=== PATIENT | male | born 1955 | race American Indian/Alaskan Native ===

== ENCOUNTER 2016-08-09 09:42 | Outpatient (CLI) | payer OTHER ==
--- NOTE | 2016-08-09 10:15 | XRay Report ---
PA and lateral chest: SOB. There is enlargement of the heart and there is mild redistribution of flow to the upper lobes. Mild blunting of both costophrenic angles is present. A focal area of atelectasis is present in the peripheral mid left lung. The chest is otherwise unremarkable. Compared to prior study of December 17, 2015 the overall pulmonary pattern is improved. Impression: Small effusions. Questionable CHF.
== END 2016-08-09 09:43 | disposition home or self-care (01) ==
LOC: XRAY 09:42
PROVIDERS: ATTEND Internal Medicine
DX: I50.41 Acute combined systolic (congestive) and diastolic (congestive) heart failure (principal); I51.7 Cardiomegaly; J98.11 Atelectasis; J90 Pleural effusion, not elsewhere classified
CPT/HCPCS: 71020

== ENCOUNTER 2017-04-15 15:09 | Inpatient (IN) | payer OTHER ==
[2017-04-15 15:47] LABS: Basophils % (Auto) 0.3 % (0.0-1.8); Eosinophils % (Auto) 2.3 % (0.0-4.3); Hematocrit 24.3 % (35.5-45.6); Hemoglobin 7.9 gm/dl (11.8-15.2); Mean Corpuscular HGB Conc 33 % (32-34); Mean Corpuscular Hemoglobin 28 pg (28-32); Mean Corpuscular Volume 85 fl (84-94); Platelet Count 230 K/mm3 (140-440); Red Blood Count 2.87 M/mm3 (3.65-5.03); Red Cell Distribution Width 17.7 % (13.2-15.2); White Blood Count 7.1 K/mm3 (4.5-11.0)
--- NOTE | 2017-04-15 15:55 | XRay Report ---
FINAL REPORT EXAM: XR CHEST ROUTINE 2V HISTORY: Shortness of breath TECHNIQUE: Frontal and lateral views of the chest. PRIORS: None currently available. FINDINGS: Cardiac silhouette is within normal limits. Aortic calcifications. There is no effusion. There is no pneumothorax. Prominent central pulmonary markings. Subtle airspace opacities in the left lower lobe. Lungs appear hyperinflated and may be related to reactive airway disease or COPD. There are no suspicious osseous lesions. Degenerative changes are present within the spine. IMPRESSION: Pulmonary findings may represent pneumonia, bronchitis, reactive airway disease, interstitial pneumonitis, or pulmonary vascular congestion. Favor pulmonary vascular congestion, bronchitis, or reactive airway disease.
[2017-04-15 16:07] LABS: Calcium 8.5 mg/dL (8.4-10.2); Chloride 104.1 mmol/L (98-107); Potassium 4.4 mmol/L (3.6-5.0)
[2017-04-15] MEDS ORDERED: NITROSTAT SL ONE (16:16)
[2017-04-15] MEDS ORDERED: LASIX IV ONE (16:17)
--- NOTE | 2017-04-15 17:14 | Emergency Department Report ---
ED Shortness of Breath HPI - General Chief Complaint: Dyspnea/Respdistress Stated Complaint: DIFFICULTY BREATHING Time Seen by Provider: 04/15/17 16:03 Source: patient Mode of arrival: Ambulatory Limitations: No Limitations - History of Present Illness Initial Comments: History of present illness 62-year-old male history of chronic kidney disease his creatinine was 3.6 6 mos ago, has been having bronchitis symptoms off and on for a month is here for multiple complaints he has a persistent little bit of a whitish sputum with cough he's had an increasing pedal edema and he satting occasional increase orthopnea he denies any black or bloody stool he denies any chest pain denies any syncope is having intermittent shortness of breath he is here for evaluation of multiple things increasing pedal edema increasing shortness of breath with a bronchitis off and on for a month says that his daily and twice a day. bumex is not helping MD Complaint: shortness of breath -: Gradual, days(s), month(s) Radiation: other (no radiation) Consistency: intermittent Improves With: other (questionable worse with laying flat) - Related Data Home Medications Medication Instructions Recorded Confirmed Last Taken Canagliflozin (Nf) [Invokana (Nf)] 100 mg PO DAILY 09/09/14 05/18/15 Unknown Carvedilol [Coreg] 25 mg PO BID 09/09/14 05/18/15 Unknown Linagliptin [Tradjenta] 5 mg PO QDAY 09/09/14 05/18/15 Unknown amLODIPine [Norvasc] 10 mg PO DAILY 09/09/14 05/18/15 Unknown AtorvaSTATin 40 mg PO DAILY 05/18/15 05/18/15 Unknown Allergies Allergy/AdvReac Type Severity Reaction Status Date / Time lisinopril Allergy Angioedema Verified 04/15/17 15:13 Penicillins Allergy Unknown Verified 04/15/17 15:13 ED Review of Systems ROS: Stated complaint: DIFFICULTY BREATHING Other details as noted in HPI Comment: All other systems reviewed and negative Respiratory: shortness of breath Cardiovascular: denies: chest pain, palpitations, syncope Gastrointestinal: as per HPI. denies: abdominal pain, nausea, vomiting, hematemesis, melena, hematochezia Musculoskeletal: other (no calf pain). denies: back pain, myalgia Hematological/Lymphatic: denies: easy bruising ED Past Medical Hx - Past Medical History Previous Medical History?: Yes Hx Hypertension: Yes Hx CVA: Yes (2011) Hx Congestive Heart Failure: No Hx Diabetes: Yes Hx Asthma: No Hx COPD: No Hx HIV: No Additional medical history: high cholesterol - Social History Smoking Status: Never Smoker Substance Use Type: Alcohol - Medications Home Medications: Home Medications Medication Instructions Recorded Confirmed Last Taken Type Canagliflozin (Nf) [Invokana (Nf)] 100 mg PO DAILY 09/09/14 05/18/15 Unknown History Carvedilol [Coreg] 25 mg PO BID 09/09/14 05/18/15 Unknown History Linagliptin [Tradjenta] 5 mg PO QDAY 09/09/14 05/18/15 Unknown History amLODIPine [Norvasc] 10 mg PO DAILY 09/09/14 05/18/15 Unknown History AtorvaSTATin 40 mg PO DAILY 05/18/15 05/18/15 Unknown History ED Physical Exam - General Limitations: No Limitations General appearance: alert, in no apparent distress - Head Head exam: Present: atraumatic, normocephalic - Eye Eye exam: Present: PERRL, EOMI - Neck Neck exam: Present: normal inspection. Absent: meningismus - Respiratory Respiratory exam: Present: rales, other (crackles at base) - GI/Abdominal GI/Abdominal exam: Present: soft. Absent: distended, tenderness, guarding, rebound, rigid, mass - Back Exam Back exam: Absent: tenderness, CVA tenderness (R) - Neurological Exam Neurological exam: Present: alert, altered, oriented X3, CN II-XII intact, motor sensory deficit, reflexes normal - Psychiatric Psychiatric exam: Present: normal affect ED Course Vital Signs 04/15/17 15:13 Temperature 97.8 F Pulse Rate 84 Respiratory 16 Rate Blood Pressure 153/74 O2 Sat by Pulse 97 Oximetry ED Medical Decision Making - Lab Data Result diagrams: 04/15/17 15:20 04/15/17 15:20 - EKG Data -: EKG Interpreted by Me - EKG Data When compared to previous EKG there are: no significant change Interpretation: no acute changes, other (no acute ischemic change) - Medical Decision Making Patient states he does have chronic kidney disease his creatinine has been 3.6436 months today it is still elevated in the threes his previous visit had a normal troponin at that point of the kidneys were better with a creatinine was in the low range he states he did have a recent echo stress Cardiolite, [place] that he says was unremarkable he is not having chest pain but he does have an elevated troponin follow his elevated creatinine he also has an anemia although he denies GI bleed EKG does not show any acute ischemic change chest x- ray shows some mild interstitial changes with likely mild CHF with possible bronchitis. I did discuss case with Dr. Kennedy MARTINEZ is evalthe patient for admission Critical care attestation.: If time is entered above; I have spent that time in minutes in the direct care of this critically ill patient, excluding procedure time. ED Disposition Clinical Impression: Dyspnea Disposition: DC-01 TO HOME OR SELFCARE Is pt being admited?: Yes Does the pt Need Aspirin: Yes Condition: Stable Referrals: PRIMARY CARE, [Primary Care Provider] - 3-5 Days
[2017-04-15] MEDS ORDERED: ASPIRIN PO ONE (17:18)
--- NOTE | 2017-04-15 21:21 | History and Physical Report ---
History of Present Illness Date of examination: 04/15/17 Date of admission: 04/15/17 Chief complaint: CC Increasing sob and swelling of legs 1 week History of present illness: History of Present Illness 62-year-old AAM with history of chronic kidney disease (creatinine was 3.6 6 mos ago) has been having bronchitis symptoms off and on .Has been having increasing pedal edema and orthopnea.On Bumex and zaroxylyn with no relieg. He denies any chest pain or syncope .Is having intermittent shortness of breath He is here for evaluation of increasing pedal edema increasing shortness of breath with a bronchitis off and on for a month says that his daily and twice a day. bumex is not helping Past Medical History Previous Medical History?: Yes Hx Hypertension: Yes Hx CVA: Yes (2011) Hx Congestive Heart Failure: No Hx Diabetes: Yes Additional medical history: high cholesterol - Social History Smoking Status: Never Smoker Substance Use Type: Alcohol Surg Hx Rt and Lt Toe surgery-Bunion removal Fam Hx Htn - Medications Home Medications: Home Medications Medication Instructions Recorded Confirmed Last Taken Type Canagliflozin (Nf) [Invokana (Nf)] 100 mg PO DAILY 09/09/14 05/18/15 Unknown History Carvedilol [Coreg] 25 mg PO BID 09/09/14 05/18/15 Unknown History Linagliptin [Tradjenta] 5 mg PO QDAY 09/09/14 05/18/15 Unknown History amLODIPine [Norvasc] 10 mg PO DAILY 09/09/14 05/18/15 Unknown History AtorvaSTATin 40 mg PO DAILY 05/18/15 05/18/15 Unknown History Review of Systems ROS: Stated complaint: DIFFICULTY BREATHING Other details as noted in HPI Comment: All other systems reviewed and negative Respiratory: shortness of breath Cardiovascular: denies: chest pain, palpitations, syncope Gastrointestinal: as per HPI. denies: abdominal pain, nausea, vomiting, hematemesis, melena, hematochezia Musculoskeletal: other (no calf pain). denies: back pain, myalgia Hematological/Lymphatic: denies: easy bruising Medications and Allergies Allergies Allergy/AdvReac Type Severity Reaction Status Date / Time lisinopril Allergy Angioedema Verified 04/15/17 15:13 Penicillins Allergy Unknown Verified 04/15/17 15:13 Home Medications Medication Instructions Recorded Confirmed Last Taken Type Carvedilol [Coreg] 25 mg PO BID 09/09/14 04/15/17 Unknown History Linagliptin [Tradjenta] 5 mg PO QDAY 09/09/14 04/15/17 Unknown History AtorvaSTATin 40 mg PO DAILY 05/18/15 04/15/17 Unknown History Bumetanide [Bumex 1 mg tab] 1 mg PO BID 04/15/17 04/15/17 Unknown History Insulin Glargine,Hum.rec.anlog 5 units SQ QAM 04/15/17 04/15/17 Unknown History [Lantus Solostar] Loratadine [Loratadine] 10 mg PO DAILY 04/15/17 04/15/17 Unknown History Losartan Potassium [Cozaar] 100 mg PO DAILY 04/15/17 04/15/17 Unknown History Metolazone [Zaroxolyn] 5 mg PO DAILY 04/15/17 04/15/17 Unknown History hydrALAZINE [Apresoline TAB] 100 mg PO TID 04/15/17 04/15/17 Unknown History Carvedilol [Carvedilol] 25 mg PO BID 04/16/17 04/16/17 04/15/17 History amLODIPine [Norvasc] 10 mg PO DAILY 04/16/17 04/16/17 04/15/17 History Exam - Constitutional Vitals: Temp Pulse Resp BP Pulse Ox 97.8 F 84 16 155/79 97 04/15/17 15:13 04/15/17 15:13 04/15/17 15:13 04/15/17 18:00 04/15/17 15:13 General appearance: Present: no acute distress, well-nourished - EENT Eyes: Present: PERRL ENT: hearing intact, clear oral mucosa - Neck Neck: Present: supple, normal ROM - Respiratory Respiratory effort: normal Respiratory: bilateral: CTA, rales - Cardiovascular Heart rate: 80 Rhythm: regular Heart Sounds: Present: S1 & S2. Absent: rub, click - Extremities Extremities: pulses symmetrical, No edema Extremity abnormal: edema ( plus bilaterally) Peripheral Pulses: within normal limits - Abdominal General gastrointestinal: Present: soft, non-tender, non-distended, normal bowel sounds Male genitourinary: Present: normal - Integumentary Integumentary: Present: clear, warm, dry - Musculoskeletal Musculoskeletal: gait normal, strength equal bilaterally - Psychiatric Psychiatric: appropriate mood/affect, intact judgment & insight - Neurologic Neurologic: CNII-XII intact, moves all extremities Results - Labs CBC & Chem 7: 04/16/17 05:15 04/16/17 05:15 Labs: Laboratory Last Values WBC 7.1 K/mm3 (4.5-11.0) 04/15/17 15:20 RBC 2.87 M/mm3 (3.65-5.03) L 04/15/17 15:20 Hgb 7.9 gm/dl (11.8-15.2) L 04/15/17 15:20 Hct 24.3 % (35.5-45.6) L 04/15/17 15:20 MCV 85 fl (84-94) 04/15/17 15:20 MCH 28 pg (28-32) 04/15/17 15:20 MCHC 33 % (32-34) 04/15/17 15:20 RDW 17.7 % (13.2-15.2) H 04/15/17 15:20 Plt Count 230 K/mm3 (140-440) 04/15/17 15:20 Lymph % (Auto) 8.4 % (13.4-35.0) L 04/15/17 15:20 [place] % (Auto) 9.5 % (0.0-7.3) H 04/15/17 15:20 Eos % (Auto) 2.3 % (0.0-4.3) 04/15/17 15:20 Baso % (Auto) 0.3 % (0.0-1.8) 04/15/17 15:20 Lymph # 0.6 K/mm3 (1.2-5.4) L 04/15/17 15:20 [place] # 0.7 K/mm3 (0.0-0.8) 04/15/17 15:20 Eos # 0.2 K/mm3 (0.0-0.4) 04/15/17 15:20 Baso # 0.0 K/mm3 (0.0-0.1) 04/15/17 15:20 Seg Neutrophils % 79.5 % (40.0-70.0) H 04/15/17 15:20 Seg Neutrophils # 5.6 K/mm3 (1.8-7.7) 04/15/17 15:20 Sodium 143 mmol/L (137-145) 04/15/17 15:20 Potassium 4.4 mmol/L (3.6-5.0) 04/15/17 15:20 Chloride 104.1 mmol/L (98-107) 04/15/17 15:20 Carbon Dioxide 22 mmol/L (22-30) 04/15/17 15:20 Anion Gap 21 mmol/L 04/15/17 15:20 BUN 38 mg/dL (9-20) H 04/15/17 15:20 Creatinine 3.4 mg/dL (0.8-1.5) H 04/15/17 15:20 Estimated GFR 22 ml/min 04/15/17 15:20 BUN/Creatinine Ratio 11 % 04/15/17 15:20 Glucose 175 mg/dL (75-100) H 04/15/17 15:20 Calcium 8.5 mg/dL (8.4-10.2) 04/15/17 15:20 Troponin T 0.056 ng/mL (0.00-0.029) H 04/15/17 17:04 NT-Pro-B Natriuret Pep 3179 pg/mL (0-900) H 04/15/17 15:20 Triglycerides 69 mg/dL (2-149) 04/15/17 15:20 Cholesterol 101 mg/dL (50-199) 04/15/17 15:20 LDL Cholesterol Direct 30 mg/dL (50-130) L 04/15/17 15:20 HDL Cholesterol 58 mg/dL (40-59) 04/15/17 15:20 Cholesterol/HDL Ratio 1.74 % 04/15/17 15:20 - Imaging and Cardiology EKG: report reviewed (NST 80/min) Chest x-ray: report reviewed (Pulmonary vascular congestion) Assessment and Plan Advance Directives: Yes (Full code) VTE prophylaxis?: Chemical Plan of care discussed with patient/family: Yes - Patient Problems (1) Acute exacerbation of CHF (congestive heart failure) Current Visit: Yes Status: Acute Qualifiers: Congestive heart failure type: combined Qualified Code(s): I50.43 - Acute on chronic combined systolic (congestive) and diastolic (congestive) heart failure Plan to address problem: Check ECHO Clinical picture c/w CHF IV Lasix for now Cardiology consult (2) Diabetes mellitus, type 2 Current Visit: No Status: Chronic Qualifiers: Diabetes mellitus complication status: with kidney complications Diabetes mellitus complication detail: with chronic kidney disease Diabetes mellitus ferry terminal agent insulin use: without jail use Chronic kidney disease stage: stage 4 (severe) Qualified Code(s): E11.22 - Type 2 diabetes mellitus with diabetic chronic kidney disease; N18.4 - Chronic kidney disease, stage 4 (severe ); N18.4 - Chronic kidney disease, stage 4 (severe); N18.4 - Chronic kidney disease, stage 4 (severe); N18.4 - Chronic kidney disease, stage 4 (severe) Plan to address problem: Cont Oral Hypoglycemics Will benefit from Insulin -Basal /Bolu regimen.Will defer to Team 3 . (3) SARIKA (acute kidney injury) Current Visit: Yes Status: Acute Plan to address problem: SARIKA superimposed on CKD Diuretics?/ Nephrology consult (4) HTN (hypertension) Current Visit: Yes Status: Chronic Qualifiers: Hypertension type: essential hypertension Qualified Code(s): I10 - Essential (primary) hypertension Plan to address problem: Cont Antihypertensives Hold Amlodipine b/c of Pedal edema (5) COPD (chronic obstructive pulmonary disease) Current Visit: Yes Status: Chronic Plan to address problem: Cont Bronhodilators (6) CKD (chronic kidney disease) Current Visit: Yes Status: Chronic Qualifiers: Chronic kidney disease stage: stage 5, not on chronic dialysis Qualified Code(s): N18.5 - Chronic kidney disease, stage 5 Plan to address problem: Defer to Nephrology (7) DVT prophylaxis Current Visit: Yes Status: Acute Plan to address problem: On Heparin
[2017-04-15] MEDS ORDERED: DULCOLAX PR PRN (22:33)
[2017-04-15] MEDS ORDERED: TYLENOL PO PRN (22:33)
[2017-04-15] MEDS ORDERED: AMBIEN PO PRN (22:33)
[2017-04-15] MEDS ORDERED: PERCOCET 5/325 PO PRN (22:33)
[2017-04-15] MEDS ORDERED: MORPHINE IV PRN (22:33)
[2017-04-15] MEDS ORDERED: MILK OF MAGNESIA PO PRN (22:33)
[2017-04-15] MEDS ORDERED: ZOFRAN IV PRN (22:33)
[2017-04-15] MEDS ORDERED: D5NS 1,000 ML IV SCH (23:00)
[2017-04-16 05:59] LABS: Basophils % (Auto) 0.4 % (0.0-1.8); Eosinophils % (Auto) 2.4 % (0.0-4.3); Hemoglobin 7.8 gm/dl (11.8-15.2); Mean Corpuscular HGB Conc 33 % (32-34); Mean Corpuscular Hemoglobin 27 pg (28-32); Mean Corpuscular Volume 84 fl (84-94); Platelet Count 230 K/mm3 (140-440); Red Blood Count 2.85 M/mm3 (3.65-5.03); Red Cell Distribution Width 17.8 % (13.2-15.2); White Blood Count 7.7 K/mm3 (4.5-11.0)
[2017-04-16] MEDS: LASIX IV SCH ×2 (06:11→18:02)
[2017-04-16 06:26] LABS: Albumin 3.2 g/dL (3.9-5); Bilirubin,Total 0.4 mg/dL (0.1-1.2); Calcium 8.3 mg/dL (8.4-10.2); Chloride 107.3 mmol/L (98-107); Total Protein 6.5 g/dL (6.3-8.2)
[2017-04-16] MEDS ORDERED: LEVEMIR SUB-Q SCH (08:00)
[2017-04-16] MEDS: APRESOLINE PO SCH ×3 (08:39→20:40)
[2017-04-16] MEDS: LEVEMIR SUB-Q SCH (08:44)
--- NOTE | 2017-04-16 09:56 | Consultation ---
History of Present Illness - History of Present Illness Thank you for the consultation patient was evaluated today. Source of information; patient himself current records were also reviewed History of presenting illness; Patient is a 62-year-old -[place] male who is currently being followed by Dr. Alberto in our office based and creatinine has been around 3.0. Patient has been having symptoms of increasing shortness of breath and progressive swelling of both lower extremity to the point that he came to the ER patient approximately 20 pounds above his weight. Outpatient setting Bux has not been working patient is also been very poorly compliant with diet and lifestyle. He does not believe the degree and extent of his proteinuria of however an outpatient setting he was treated with amlodipine. He has also not been watching his fluid intake. Patient has been noted to be severely anemic hemoglobin around 7.9 below 38 creatinine 3.4 prompting this consultation patient does not use any follow-up nonsteroidal drugs, BCs of Goody's powder nor difficulty voiding. During this admission is being treated for acute acceleration of congestive heart failure, diabetes. Past medical history is significant for diabetes Hypertension Chronic kidney disease Overweight Chronic edema Poor lifestyle and eating habit Allergies: Lisinopril, penicillin Social history: denies any history of alcohol or tobacco use Family history: noncontributory for related disorder Review of system is positive for progressive swelling of both lower extremity shortness of breath no complaints of any bloody dark bowel movement Complete review of systems obtained pertinent positive above other's review of systems negative Physical examination General: No acute distress HEENT: Oral mucosa moist no pharyngeal erythema no pallor or icterus no uremic order Neck: Supple no evidence of any thyromegaly trachea midline no JVD Chest: Clear to auscultation no crackles are also wheezes anteriorly Heart: Regular rate and rhythm S1-S2 heard no S3-S4 Abdomen: Soft nontender no renal bruit no CVA tenderness no suprapubic fullness no organomegaly Extremity: Minimal edema dry skin no peripheral cyanosis pulses palpable Neurological: Alert awake follows command grossly nonfocal examination Back: Nontender thoracolumbar spine Musculoskeletal: No joint effusion noted Skin: No petechial rash/noted Assessment and plan chronic kidney disease patient's baseline creatinine has been around 3, there is no acute emergent indication for renal replacement therapy patient may be cardiorenal rule out other causes? Progression of renal failure over time Assess the degree of proteinuria in his case to make sure he does not have nephrotic range proteinuria Progressive edema shortness of breath multifactorial likely resulting from congestive heart failure, chronic kidney disease, severe anemia Anemia severe etiology unclear could be due to underlying chronic kidney disease requires further workup including B12 and folic acid reticulocyte count hematology evaluation rule out GI loss consider gentle diuresis as tolerated keeping in mind that creatinine should be kept under 3.6-3.7 Nature and issue of renal-related issues were discussed with patient, all questions were answered and simple [place] Patient does have good understanding about renal-related issues. Renal prognosis is guarded at this time, he was advised to modify his diet and follow renal diet patient has been noncompliant Counseled and educated to get further education from [employer] and related links, and if any further question to clarify with me We'll continue to follow and make recommendations from renal standpoint If you have any questions please feel free to contact me at [phone] Medications and Allergies Allergies Allergy/AdvReac Type Severity Reaction Status Date / Time lisinopril Allergy Angioedema Verified 04/15/17 15:13 Penicillins Allergy Unknown Verified 04/15/17 15:13 Home Medications Medication Instructions Recorded Confirmed Last Taken Type Carvedilol [Coreg] 25 mg PO BID 09/09/14 04/15/17 Unknown History Linagliptin [Tradjenta] 5 mg PO QDAY 09/09/14 04/15/17 Unknown History AtorvaSTATin 40 mg PO DAILY 05/18/15 04/15/17 Unknown History Bumetanide [Bumex 1 mg tab] 1 mg PO BID 04/15/17 04/15/17 Unknown History Insulin Glargine,Hum.rec.anlog 5 units SQ QAM 04/15/17 04/15/17 Unknown History [Lantus Solostar] Loratadine [Loratadine] 10 mg PO DAILY 04/15/17 04/15/17 Unknown History Losartan Potassium [Cozaar] 100 mg PO DAILY 04/15/17 04/15/17 Unknown History Metolazone [Zaroxolyn] 5 mg PO DAILY 04/15/17 04/15/17 Unknown History hydrALAZINE [Apresoline TAB] 100 mg PO TID 04/15/17 04/15/17 Unknown History Carvedilol [Carvedilol] 25 mg PO BID 04/16/17 04/16/17 04/15/17 History amLODIPine [Norvasc] 10 mg PO DAILY 04/16/17 04/16/17 04/15/17 History Active Meds: Active Medications Acetaminophen (Tylenol) 650 mg PO Q4H PRN PRN Reason: Pain MILD(1-3)/Fever >100.5/ACUNA Amlodipine Besylate (Norvasc) 10 mg PO DAILY [facility] Atorvastatin Calcium (Lipitor) 40 mg PO DAILY [facility] Bisacodyl (Dulcolax) 10 mg IA QDAY PRN PRN Reason: Constipation unrelieved by MOM Bumetanide (Bumex) 1 mg PO BID [facility] Carvedilol (Coreg) 25 mg PO BID [facility] Furosemide (Lasix) 40 mg IV 0600,1800 [facility] Last Admin: 04/16/17 06:11 Dose: 40 mg Heparin Sodium (Porcine) (Heparin) 5,000 unit SUB-Q Q12HR [facility] Hydralazine HCl (Apresoline) 100 mg PO TID [facility] Last Admin: 04/16/17 08:39 Dose: 100 mg Dextrose/Sodium Chloride (D5ns) 1,000 mls @ 75 mls/hr IV DIRECT [facility] Insulin Detemir (Levemir) 15 units SUB-Q QAMDIAB [facility] Last Admin: 04/16/17 08:44 Dose: 15 units Linagliptin (Tradjenta) 5 mg PO QDAY [facility] Loratadine (Claritin) 10 mg PO DAILY [facility] Losartan Potassium (Cozaar) 100 mg PO DAILY [facility] Magnesium Hydroxide (Milk Of Magnesia) 30 ml PO Q4H PRN PRN Reason: Constipation Metolazone (Zaroxolyn) 5 mg PO DAILY [facility] Morphine Sulfate (Morphine) 4 mg IV Q4H PRN PRN Reason: Pain , Severe (7-10) Ondansetron HCl (Zofran) 4 mg IV Q8H PRN PRN Reason: N/V unrelieved by Reglan Oxycodone/Acetaminophen (Percocet 5/325) 1 tab PO Q6H PRN PRN Reason: Pain, Moderate (4-6) Zolpidem Tartrate (Ambien) 5 mg PO QHS PRN PRN Reason: Insomnia Exam - Vital Signs Vital signs: Vital Signs Temp Pulse Resp BP Pulse Ox 97.8 F 84 16 153/74 97 04/15/17 15:13 04/15/17 15:13 04/15/17 15:13 04/15/17 15:13 04/15/17 15:13 Results - Lab Results 04/16/17 05:15 04/16/17 05:15 Most recent lab results Calcium 8.3 mg/dL (8.4-10.2) L 04/16/17 05:15
[2017-04-16] MEDS: ZAROXOLYN PO SCH (10:00)
[2017-04-16] MEDS ORDERED: INSULIN GLARGINE HUM REC ANLOG 5 UNIT SQ SCH (10:00)
[2017-04-16] MEDS ORDERED: COREG PO SCH (10:00)
[2017-04-16] MEDS ORDERED: CANAGLIFLOZIN 100 MG PO SCH (10:00)
[2017-04-16] MEDS: COZAAR PO SCH (10:04)
[2017-04-16] MEDS: TRADJENTA PO SCH (10:06)
[2017-04-16] MEDS: COREG PO SCH ×2 (10:07→22:41)
[2017-04-16] MEDS: NORVASC PO SCH (10:08)
[2017-04-16] MEDS: HEPARIN SUB-Q SCH ×2 (12:08→22:41)
[2017-04-16] MEDS: CLARITIN PO SCH (12:21)
[2017-04-16] MEDS: BUMEX PO SCH ×2 (20:08→22:41)
[2017-04-17] MEDS: LASIX IV SCH ×2 (06:23→17:26)
--- NOTE | 2017-04-17 09:24 | Progress Note ---
Assessment and Plan - Patient Problems (1) Acute kidney injury superimposed on CKD Current Visit: Yes Status: Acute Plan to address problem: acute on CKD stage 4. Scr-3.4. Adjust meds per renal function. Discussed about nature of kidney disease, moderate protein restricted diet, emphasised on goal BP and BG (2) Acute diastolic (congestive) heart failure Current Visit: Yes Status: Acute Plan to address problem: continue present diuretics (3) HTN (hypertension) Current Visit: Yes Status: Chronic Qualifiers: Hypertension type: essential hypertension Qualified Code(s): I10 - Essential (primary) hypertension Plan to address problem: BP under control-continue present meds (4) Diabetes mellitus, type 2 Current Visit: No Status: Chronic Qualifiers: Diabetes mellitus complication status: with kidney complications Diabetes mellitus complication detail: with chronic kidney disease Diabetes mellitus assisted insulin use: without assisted use Chronic kidney disease stage: stage 4 (severe) Qualified Code(s): E11.22 - Type 2 diabetes mellitus with diabetic chronic kidney disease; N18.4 - Chronic kidney disease, stage 4 (severe ); N18.4 - Chronic kidney disease, stage 4 (severe); N18.4 - Chronic kidney disease, stage 4 (severe); N18.4 - Chronic kidney disease, stage 4 (severe) (5) Anemia in CKD (chronic kidney disease) Current Visit: Yes Status: Acute Subjective Date of service: 04/17/17 Interval history: pt is alert, oriented, denies CP ,swelling and SOB little better Objective - Vital Signs Vital signs: Vital Signs - 12hr 04/17/17 04/17/17 00:21 04:23 Temperature 97.9 F 98.2 F Pulse Rate 78 83 Respiratory 22 20 Rate Blood Pressure 140/76 146/74 O2 Sat by Pulse 90 84 Oximetry - General Appearance General appearance: well-developed EENT: mucous membranes moist Neck: no JVD Respiratory: Present: Decreased Breath Sounds Cardiology: regular Gastrointestinal: normoactive bowel sounds Neurologic: alert and oriented x3 Musculoskeletal: other (1+edema) Psychiatric: mood/affect appropriate, cooperative - Lab 04/16/17 05:15 04/16/17 05:15 Most recent lab results Calcium 8.3 mg/dL (8.4-10.2) L 04/16/17 05:15
[2017-04-17] MEDS: BUMEX PO SCH ×3 (09:31→22:46)
[2017-04-17] MEDS: LEVEMIR SUB-Q SCH (09:31)
[2017-04-17] MEDS: HEPARIN SUB-Q SCH ×2 (09:31→22:47)
[2017-04-17] MEDS: COZAAR PO SCH (09:32)
[2017-04-17] MEDS: ZAROXOLYN PO SCH (09:32)
[2017-04-17] MEDS: APRESOLINE PO SCH ×3 (09:32→20:50)
[2017-04-17] MEDS: TRADJENTA PO SCH (09:34)
[2017-04-17] MEDS: CLARITIN PO SCH (09:34)
[2017-04-17] MEDS: COREG PO SCH ×2 (09:34→22:46)
[2017-04-17] MEDS: NORVASC PO SCH (09:35)
--- NOTE | 2017-04-17 10:47 | Consultation ---
History of Present Illness Consult date: 04/17/17 Consult reason: congestive heart failure History of present illness: This is a 62yr old male who presented with complaints of shortness of breath, coughs and congestion ongoing for several weeks. A cardiac consultation was requested for CHF evaluation. Patient admits to fatigue and lower extremity edema. Patient denies chest pain and palpitations. He remains afebrile. A chest x-ray reports reactive airway disease or COPD. Medications and Allergies Allergies Allergy/AdvReac Type Severity Reaction Status Date / Time lisinopril Allergy Angioedema Verified 04/15/17 15:13 Penicillins Allergy Unknown Verified 04/15/17 15:13 Home Medications Medication Instructions Recorded Confirmed Last Taken Type Carvedilol [Coreg] 25 mg PO BID 09/09/14 04/15/17 Unknown History Linagliptin [Tradjenta] 5 mg PO QDAY 09/09/14 04/15/17 Unknown History AtorvaSTATin 40 mg PO DAILY 05/18/15 04/15/17 Unknown History Bumetanide [Bumex 1 mg tab] 1 mg PO BID 04/15/17 04/15/17 Unknown History Insulin Glargine,Hum.rec.anlog 5 units SQ QAM 04/15/17 04/15/17 Unknown History [Lantus Solostar] Loratadine [Loratadine] 10 mg PO DAILY 04/15/17 04/15/17 Unknown History Losartan Potassium [Cozaar] 100 mg PO DAILY 04/15/17 04/15/17 Unknown History Metolazone [Zaroxolyn] 5 mg PO DAILY 04/15/17 04/15/17 Unknown History hydrALAZINE [Apresoline TAB] 100 mg PO TID 04/15/17 04/15/17 Unknown History Carvedilol [Carvedilol] 25 mg PO BID 04/16/17 04/16/17 04/15/17 History amLODIPine [Norvasc] 10 mg PO DAILY 04/16/17 04/16/17 04/15/17 History Active Meds: Active Medications Acetaminophen (Tylenol) 650 mg PO Q4H PRN PRN Reason: Pain MILD(1-3)/Fever >100.5/ACUNA Amlodipine Besylate (Norvasc) 10 mg PO DAILY [facility] Last Admin: 04/17/17 09:35 Dose: 10 mg Atorvastatin Calcium (Lipitor) 40 mg PO DAILY [facility] Last Admin: 04/17/17 09:34 Dose: 40 mg Bisacodyl (Dulcolax) [address] QDAY PRN PRN Reason: Constipation unrelieved by MOM Bumetanide (Bumex) 1 mg PO BID [facility] Last Admin: 04/17/17 09:35 Dose: 1 mg Carvedilol (Coreg) 25 mg PO BID [facility] Last Admin: 04/17/17 09:34 Dose: 25 mg Furosemide (Lasix) 40 mg IV 0600,1800 [facility] Last Admin: 04/17/17 06:23 Dose: 40 mg Heparin Sodium (Porcine) (Heparin) 5,000 unit SUB-Q Q12HR [facility] Last Admin: 04/17/17 09:31 Dose: 5,000 unit Hydralazine HCl (Apresoline) 100 mg PO TID [facility] Last Admin: 04/17/17 09:32 Dose: 100 mg Insulin Detemir (Levemir) 15 units SUB-Q QAMDIAB [facility] Last Admin: 04/17/17 09:31 Dose: 15 units Linagliptin (Tradjenta) 5 mg PO QDAY [facility] Last Admin: 04/17/17 09:34 Dose: 5 mg Loratadine (Claritin) 10 mg PO DAILY [facility] Last Admin: 04/17/17 09:34 Dose: 10 mg Losartan Potassium (Cozaar) 100 mg PO DAILY [facility] Last Admin: 04/17/17 09:32 Dose: 100 mg Magnesium Hydroxide (Milk Of Magnesia) 30 ml PO Q4H PRN PRN Reason: Constipation Metolazone (Zaroxolyn) 5 mg PO DAILY [facility] Last Admin: 04/17/17 09:32 Dose: 5 mg Morphine Sulfate (Morphine) 4 mg IV Q4H PRN PRN Reason: Pain , Severe (7-10) Ondansetron HCl (Zofran) 4 mg IV Q8H PRN PRN Reason: N/V unrelieved by Reglan Oxycodone/Acetaminophen (Percocet 5/325) 1 tab PO Q6H PRN PRN Reason: Pain, Moderate (4-6) Zolpidem Tartrate (Ambien) 5 mg PO QHS PRN PRN Reason: Insomnia Physical Examination Vital Signs Temp Pulse Resp BP Pulse Ox 97.8 F 84 16 153/74 97 12/16/17 15:13 04/15/17 15:13 04/15/17 15:13 04/15/17 15:13 04/15/17 15:13 General appearance: no acute distress HEENT: Positive: PERRL Cardiac: Positive: Reg Rate and Rhythm Neuro: Positive: Grossly Intact Extremities: Present: +1 Edema Results 04/16/17 05:15 04/16/17 05:15 Assessment and Plan Bronchitis Chronic kidney disease Prior CVA Anemia Normal MPI 10/2016. EF 55-60% on echo 10/2016.
--- NOTE | 2017-04-17 15:51 | Progress Note ---
Assessment and Plan Assessment and plan: --Acute on chronic diastolic congestive heart failure; Elevated BNP, normal ejection fraction, signs and symptoms of CHF continue current management, cardiology following --Acute on chronic kidney disease stage III; closely monitor renal function; avoid nephrotoxic medication, nephrology following --Hypertension; moderate control, continue current antihypertensives and when necessary medications --Nonspecific elevation of troponins; secondary to acute on chronic diastolic congestive heart failure as well as acute and chronic kidney disease --Medical non-complaints; constant and patient advised to comply with medications diet and doctor's visits, verbalized understanding --DVT prophylaxis with heparin Cardiology and nephrology evaluation and recommendations noted and appreciated Continue current management Possible discharge home 1-2 days if stable History Interval history: Patient seen and examined through medical records reviewed Complaints of shortness of breath and cough Worsening leg edema Denies chest pain, vital signs reviewed Hospitalist Physical - Constitutional Vitals: Temp Pulse Resp BP Pulse Ox 98.7 F 82 20 126/59 93 04/17/17 15:25 04/17/17 15:25 04/17/17 15:25 04/17/17 15:25 04/17/17 15:25 General appearance: Present: no acute distress, well-nourished - EENT Eyes: Present: PERRL, EOM intact - Neck Neck: Present: supple, normal ROM - Respiratory Respiratory effort: normal Respiratory: bilateral: diminished, rales, negative: rhonchi, wheezing - Cardiovascular Rhythm: regular Heart Sounds: Present: S1 & S2 - Extremities Extremities: no ischemia Extremity abnormal: edema - Abdominal General gastrointestinal: soft, non-tender, non-distended, normal bowel sounds - Integumentary Integumentary: Present: clear, warm - Psychiatric Psychiatric: appropriate mood/affect, cooperative - Neurologic Neurologic: CNII-XII intact, moves all extremities Results - Labs CBC & Chem 7: 04/16/17 05:15 04/16/17 05:15 Labs: Laboratory Last Values WBC 7.7 K/mm3 (4.5-11.0) 04/16/17 05:15 RBC 2.85 M/mm3 (3.65-5.03) L 04/16/17 05:15 Hgb 7.8 gm/dl (11.8-15.2) L 04/16/17 05:15 Hct 24.0 % (35.5-45.6) L 04/16/17 05:15 MCV 84 fl (84-94) 04/16/17 05:15 MCH 27 pg (28-32) L 04/16/17 05:15 MCHC 33 % (32-34) 04/16/17 05:15 RDW 17.8 % (13.2-15.2) H 04/16/17 05:15 Plt Count 230 K/mm3 (140-440) 04/16/17 05:15 Lymph % (Auto) 7.2 % (13.4-35.0) L 04/16/17 05:15 [place] % (Auto) 8.5 % (0.0-7.3) H 04/16/17 05:15 Eos % (Auto) 2.4 % (0.0-4.3) 04/16/17 05:15 Baso % (Auto) 0.4 % (0.0-1.8) 04/16/17 05:15 Lymph # 0.6 K/mm3 (1.2-5.4) L 04/16/17 05:15 [place] # 0.7 K/mm3 (0.0-0.8) 04/16/17 05:15 Eos # 0.2 K/mm3 (0.0-0.4) 04/16/17 05:15 Baso # 0.0 K/mm3 (0.0-0.1) 04/16/17 05:15 Seg Neutrophils % 81.5 % (40.0-70.0) H 04/16/17 05:15 Seg Neutrophils # 6.3 K/mm3 (1.8-7.7) 04/16/17 05:15 Sodium 145 mmol/L (137-145) 04/16/17 05:15 Potassium 4.0 mmol/L (3.6-5.0) 04/16/17 05:15 Chloride 107.3 mmol/L (98-107) H 04/16/17 05:15 Carbon Dioxide 25 mmol/L (22-30) 04/16/17 05:15 Anion Gap 17 mmol/L 04/16/17 05:15 BUN 40 mg/dL (9-20) H 04/16/17 05:15 Creatinine 3.4 mg/dL (0.8-1.5) H 04/16/17 05:15 Estimated GFR 22 ml/min 04/16/17 05:15 BUN/Creatinine Ratio 12 % 04/16/17 05:15 Glucose 161 mg/dL (75-100) H 04/16/17 05:15 POC Glucose 128 (70-105) H 04/17/17 12:59 Calcium 8.3 mg/dL (8.4-10.2) L 04/16/17 05:15 Total Bilirubin 0.40 mg/dL (0.1-1.2) 04/16/17 05:15 AST 15 units/L (5-40) 04/16/17 05:15 ALT 15 units/L (7-56) 04/16/17 05:15 Alkaline Phosphatase 65 units/L (35-129) 04/16/17 05:15 Troponin T 0.059 ng/mL (0.00-0.029) H 04/16/17 05:15 NT-Pro-B Natriuret Pep 3179 pg/mL (0-900) H 04/15/17 15:20 Total Protein 6.5 g/dL (6.3-8.2) 04/16/17 05:15 Albumin 3.2 g/dL (3.9-5) L 04/16/17 05:15 Albumin/Globulin Ratio 1.0 % 04/16/17 05:15 Triglycerides 69 mg/dL (2-149) 04/15/17 15:20 Cholesterol 101 mg/dL (50-199) 04/15/17 15:20 LDL Cholesterol Direct 30 mg/dL (50-130) L 04/15/17 15:20 HDL Cholesterol 58 mg/dL (40-59) 04/15/17 15:20 Cholesterol/HDL Ratio 1.74 % 04/15/17 15:20
--- NOTE | 2017-04-17 16:08 | Progress Note ---
Assessment and Plan Assessment and plan: --Acute on chronic kidney disease stage III; with fluid overload closely monitor renal function; avoid nephrotoxic medication, monitor input output ,nephrology following --Possible Acute on chronic diastolic congestive heart failure; Elevated BNP, normal ejection fraction, signs and symptoms of CHF continue current management, cardiology following --Hypertension; well controlled, continue current antihypertensives and when necessary medications --Nonspecific elevation of troponins; denies chest pain secondary to acute on chronic diastolic congestive heart failure, acute and chronic kidney disease --Medical non-compliance; patient advised to comply with medications diet and doctor's visits, verbalized understanding --DVT prophylaxis with heparin Cardiology and nephrology evaluation and recommendations noted and appreciated Continue current management Possible discharge home 1-2 days if stable History Interval history: Patient seen and examined medical records reviewed Patient feels slightly better no new complaints Denies chest pain, mild shortness of breath Diuresing well Vital signs reviewed Hospitalist Physical - Constitutional Vitals: Temp Pulse Resp BP Pulse Ox 98.7 F 82 20 126/59 93 04/17/17 15:25 04/17/17 15:25 04/17/17 15:25 04/17/17 15:25 04/17/17 15:25 General appearance: Present: no acute distress, well-nourished - EENT Eyes: Present: PERRL, EOM intact - Neck Neck: Present: supple, normal ROM - Respiratory Respiratory effort: normal Respiratory: bilateral: diminished, negative: rales, rhonchi, wheezing - Cardiovascular Rhythm: regular Heart Sounds: Present: S1 & S2 - Extremities Extremities: no ischemia, No edema - Abdominal General gastrointestinal: soft, non-tender, non-distended, normal bowel sounds - Integumentary Integumentary: Present: clear, warm - Psychiatric Psychiatric: appropriate mood/affect, cooperative - Neurologic Neurologic: CNII-XII intact, moves all extremities Results - Labs CBC & Chem 7: 04/16/17 05:15 04/16/17 05:15 Labs: Laboratory Last Values WBC 7.7 K/mm3 (4.5-11.0) 04/16/17 05:15 RBC 2.85 M/mm3 (3.65-5.03) L 04/16/17 05:15 Hgb 7.8 gm/dl (11.8-15.2) L 04/16/17 05:15 Hct 24.0 % (35.5-45.6) L 04/16/17 05:15 MCV 84 fl (84-94) 04/16/17 05:15 MCH 27 pg (28-32) L 04/16/17 05:15 MCHC 33 % (32-34) 04/16/17 05:15 RDW 17.8 % (13.2-15.2) H 04/16/17 05:15 Plt Count 230 K/mm3 (140-440) 04/16/17 05:15 Lymph % (Auto) 7.2 % (13.4-35.0) L 04/16/17 05:15 [place] % (Auto) 8.5 % (0.0-7.3) H 04/16/17 05:15 Eos % (Auto) 2.4 % (0.0-4.3) 04/16/17 05:15 Baso % (Auto) 0.4 % (0.0-1.8) 04/16/17 05:15 Lymph # 0.6 K/mm3 (1.2-5.4) L 04/16/17 05:15 [place] # 0.7 K/mm3 (0.0-0.8) 04/16/17 05:15 Eos # 0.2 K/mm3 (0.0-0.4) 04/16/17 05:15 Baso # 0.0 K/mm3 (0.0-0.1) 04/16/17 05:15 Seg Neutrophils % 81.5 % (40.0-70.0) H 04/16/17 05:15 Seg Neutrophils # 6.3 K/mm3 (1.8-7.7) 04/16/17 05:15 Sodium 145 mmol/L (137-145) 04/16/17 05:15 Potassium 4.0 mmol/L (3.6-5.0) 04/16/17 05:15 Chloride 107.3 mmol/L (98-107) H 04/16/17 05:15 Carbon Dioxide 25 mmol/L (22-30) 04/16/17 05:15 Anion Gap 17 mmol/L 04/16/17 05:15 BUN 40 mg/dL (9-20) H 04/16/17 05:15 Creatinine 3.4 mg/dL (0.8-1.5) H 04/16/17 05:15 Estimated GFR 22 ml/min 04/16/17 05:15 BUN/Creatinine Ratio 12 % 04/16/17 05:15 Glucose 161 mg/dL (75-100) H 04/16/17 05:15 POC Glucose 128 (70-105) H 04/17/17 12:59 Calcium 8.3 mg/dL (8.4-10.2) L 04/16/17 05:15 Total Bilirubin 0.40 mg/dL (0.1-1.2) 04/16/17 05:15 AST 15 units/L (5-40) 04/16/17 05:15 ALT 15 units/L (7-56) 04/16/17 05:15 Alkaline Phosphatase 65 units/L (35-129) 04/16/17 05:15 Troponin T 0.059 ng/mL (0.00-0.029) H 04/16/17 05:15 NT-Pro-B Natriuret Pep 3179 pg/mL (0-900) H 04/15/17 15:20 Total Protein 6.5 g/dL (6.3-8.2) 04/16/17 05:15 Albumin 3.2 g/dL (3.9-5) L 04/16/17 05:15 Albumin/Globulin Ratio 1.0 % 04/16/17 05:15 Triglycerides 69 mg/dL (2-149) 04/15/17 15:20 Cholesterol 101 mg/dL (50-199) 04/15/17 15:20 LDL Cholesterol Direct 30 mg/dL (50-130) L 04/15/17 15:20 HDL Cholesterol 58 mg/dL (40-59) 04/15/17 15:20 Cholesterol/HDL Ratio 1.74 % 04/15/17 15:20
[2017-04-18 06:15] LABS: INR 1.11 (0.87-1.13)
[2017-04-18 06:16] LABS: Partial Thromboplastin Time 39.6 Sec. (24.2-36.6)
[2017-04-18] MEDS: LASIX IV SCH (06:18)
[2017-04-18] MEDS: APRESOLINE PO SCH ×2 (09:00→15:17)
--- NOTE | 2017-04-18 09:02 | Progress Note ---
Assessment and Plan Bronchitis Volume overload secondary to renal failure and non-compliance with fluid restriction Chronic kidney disease Prior CVA Anemia Normal MPI 10/2016. EF 55-60% on echo 10/2016. Fluid management per nephrology (patient on po bumex, IV lasix and po metolazone ). Continue afterload reduction. Otherwise, conservative cardiac management. Subjective Date of service: 04/18/17 Interval history: Patient is resting in bed comfortably. Reports he is feeling somewhat better. Objective Vital Signs Temp Pulse Resp BP BP Pulse Ox 04/18/17 05:00 71 04/18/17 04:31 97.9 F 80 20 126/61 90 04/18/17 01:18 98.1 F 80 19 111/55 88 04/17/17 22:46 86 04/17/17 22:38 134/63 04/17/17 21:00 85 04/17/17 19:57 98.7 F 83 20 133/66 91 04/17/17 18:00 80 04/17/17 16:48 98.0 F 82 18 154/79 92 04/17/17 15:25 98.7 F 82 20 126/59 93 04/17/17 13:02 97.7 F 63 18 91/41 98 04/17/17 12:54 97.8 F 76 20 140/77 92 04/17/17 10:00 79 04/17/17 09:32 85 127/98 - Physical Examination General: No Apparent Distress HEENT: Positive: PERRL Cardiac: Positive: Reg Rate and Rhythm Neuro: Positive: Grossly Intact Extremities: Present: +1 Edema - Labs and Meds Coagulation 04/18/17 Range/Units 05:17 PT 14.9 (12.2-14.9) Sec. INR 1.11 (0.87-1.13) APTT 39.6 H (24.2-36.6) Sec. - Imaging and Cardiology EKG: report reviewed (NST 80/min)
[2017-04-18 10:07] LABS: Calcium 8.4 mg/dL (8.4-10.2); Chloride 98.9 mmol/L (98-107); Potassium 4.1 mmol/L (3.6-5.0)
[2017-04-18] MEDS: BUMEX PO SCH (10:07)
[2017-04-18] MEDS: COREG PO SCH (10:10)
[2017-04-18] MEDS: COZAAR PO SCH (10:10)
[2017-04-18] MEDS: NORVASC PO SCH (10:10)
[2017-04-18] MEDS: CLARITIN PO SCH (10:10)
[2017-04-18] MEDS: ZAROXOLYN PO SCH (10:10)
[2017-04-18] MEDS: TRADJENTA PO SCH (10:11)
[2017-04-18] MEDS: HEPARIN SUB-Q SCH (10:12)
[2017-04-18] MEDS: LEVEMIR SUB-Q SCH (10:12)
[2017-04-18 10:19] VITALS: BP 137/69
--- NOTE | 2017-04-18 15:26 | Progress Note ---
Assessment and Plan Impression * Acute and chronic renal insufficiency. Baseline creatinine approximately 3.1 * Congestive heart failure * Hypertension * Anemia. Most likely secondary to chronic disease * Diabetes * Hypertension Recommendations * Patient seems to be responding well to diuretics * His renal function is stable. No urgent indication for renal replacement therapy at this time * He will however most likely need access planning in near future * Shall check a 24-hour urine for creatinine clearance * Continue loop diuretics * Shall do anemia workup as well * He may need Procrit shots * Avoid nephrotoxins * Daily weights and strict I&O Subjective Date of service: 04/18/17 Interval history: Patient feels much better today. Shortness of breath has improved. Denies any nausea vomiting or diarrhea Objective - Vital Signs Vital signs: Vital Signs - 12hr 04/18/17 04/18/17 04/18/17 04:31 05:00 10:00 Temperature 97.9 F Pulse Rate 80 71 Respiratory 20 18 Rate Blood Pressure 126/61 O2 Sat by Pulse 90 Oximetry 04/18/17 10:10 Temperature Pulse Rate 77 Respiratory Rate Blood Pressure 137/69 O2 Sat by Pulse Oximetry - General Appearance General appearance: well-developed, well-nourished, appears stated age EENT: PERRL, mucous membranes moist Neck: no JVD, no thyromegaly Respiratory: Present: Clear to Ascultation, Decreased Breath Sounds (at the bases) Cardiology: regular, normal heart rate Gastrointestinal: normal, normoactive bowel sounds Integumentary: no rash, other (1+ edema) - Lab 04/16/17 05:15 04/18/17 09:19 Most recent lab results Calcium 8.4 mg/dL (8.4-10.2) 04/18/17 09:19
--- NOTE | 2017-04-18 16:42 | Discharge Summary ---
Providers - Providers Date of Admission: 04/15/17 22:33 Date of discharge: 04/18/17 Attending physician: EULALIA SALAS 04/15/17 22:43 Consult to Physician [CONS] Routine Consulting Provider: JONAH DE SANTIAGO Reason For Exam: CKD Place consult to:: Dr. De Santiago Notified:: Tesfaye MALONEY Phone number called:: Was contact made?: Yes If yes, spoke with:: Nelia-answering service Time called:: 09:11 04/16/17 08:14 Consult to Physician [CONS] Routine Consulting Provider: JANES GUSTAFSON Reason For Exam: CHF Place consult to:: Dr. Gustafson Notified:: Tesfaye MALONEY Phone number called:: Was contact made?: Yes If yes, spoke with:: Brittany-answering service Time called:: 13:59 Primary care physician: EXCH[facility] ARCHITECT Hospitalization Reason for admission: worsening shortness of breath/worsening leg edema Condition: Stable Hospital course: 62-year-old -[place] male patient with history of chronic kidney disease has been having this condition shortness of breath and worsening leg edema for the last 1 week Patient was initially evaluated admitted to the hospital noted to have acute on chronic kidney disease as well as possible congestive heart failure Patient is symptomatically managed Evaluation by cardiology medications but optimized Evaluated by nephrology, multiple diuretics with close monitoring of input and output Patient's symptoms significantly improved, today's comfortably in bed no new complaints Stable vital signs, physical examination is unremarkable Patient is hemodynamically and clinically stable for discharge Cleared nephrology and cardiology, rest of the workup as outpatient Patient was stable at discharge Discharge diagnosis; --Acute on chronic kidney disease stage III; with fluid overload --Possible Acute on chronic diastolic congestive heart failure --Hypertension; well controlled, --Nonspecific elevation of troponins; denies chest pain secondary to acute on chronic diastolic CHF --Medical non-compliance; counseling done Disposition: TO HOME OR SELFCARE Time spent for discharge: 33 min Core Measure Documentation - Palliative Care Palliative Care/ Comfort Measures: Not Applicable - Core Measures Any of the following diagnoses?: none Exam - Constitutional Vitals: Temp Pulse Resp BP Pulse Ox 97.9 F 77 18 137/69 90 04/18/17 04:31 04/18/17 10:10 04/18/17 10:00 04/18/17 10:10 04/18/17 04:31 General appearance: Present: no acute distress, well-nourished - EENT Eyes: Present: PERRL, EOM intact - Neck Neck: Present: supple, normal ROM - Respiratory Respiratory effort: normal Respiratory: negative: rales, rhonchi, wheezing - Cardiovascular Rhythm: regular Heart Sounds: Present: S1 & S2 - Extremities Extremities: no ischemia, No edema - Abdominal General gastrointestinal: Present: soft, non-tender, non-distended, normal bowel sounds - Integumentary Integumentary: Present: clear, warm - Musculoskeletal Musculoskeletal: strength equal bilaterally - Psychiatric Psychiatric: appropriate mood/affect, cooperative - Neurologic Neurologic: CNII-XII intact, moves all extremities Plan Activity: no restrictions Diet: diabetic, renal Additional Instructions: 24-hour urine for creatinine clearance [outpatient] Follow up with: PRIMARY MD BREANNE [Primary Care Provider] - 3-5 Days RIKA SEGURA MD [Staff Physician] - 7 Days JORGE ALBERTO CASEY MD [Staff Physician] - 7 Days
--- NOTE | 2017-04-19 16:31 | Query- Renal Failure ---
Dear ___Luis Date:____04/19/17 Regroover/CDS:___Rohit Phone#:___[phone] Exercise your independent professional judgment when responding to query. Questions asked do not imply a particular answer is desired or expected. We greatly appreciate your clarification on this issue. Clinical Documentation States: 62 year old male was admitted on 04/18/17 The discharge summary (Dr. Smith) states " Reason for admission: worsening shortness of breath/worsening leg edema 62-year-old -Citizen Of [place] male patient with history of chronic kidney disease has been having this condition shortness of breath and worsening leg edema for the last 1 week discharge diagnosis; --Acute on chronic kidney disease stage III; with fluid overload " Clinical Findings Show: 04/15/17 04/18/17 Creatiine: 3.4 3.3 BUN/Creatinine Ratio: 11 12 Please clarify if you mean: Acute Renal Failure with or due to: [ x] Tubular Necrosis [ ] Medullary Necrosis [ ] Vasomotor Nephropathy [ ] Shock Kidney [ ] Tubular Nephrosis [ ] Renal Tubular Stasis [ ] Cortical Necrosis [ ] Acute Renal Failure (unspecified) [ ] Lower Tubular Nephrosis [ ] Other: [ ] Not Applicable Present on Admission: [ x] Yes (Y) [ ] Clinically undeterminable (W) [ ] No (N) Please also document response in your Progress Notes and/or Discharge Summary and indicate if the condition was present on admission. CRISTINAD
== END 2017-04-18 19:05 | disposition home or self-care (01) | DRG 682 ==
LOC: ED 15:09 → 4A 22:33
PROVIDERS: ADMIT Internal Medicine; ATTEND Internal Medicine
DX: N17.0 Acute kidney failure with tubular necrosis (principal); I50.33 Acute on chronic diastolic (congestive) heart failure; I13.0 Hypertensive heart and chronic kidney disease with heart failure and stage 1 through stage 4 chronic kidney disease, or unspecified chronic kidney disease; J44.0 Chronic obstructive pulmonary disease with (acute) lower respiratory infection; N18.4 Chronic kidney disease, stage 4 (severe); J44.9 Chronic obstructive pulmonary disease, unspecified; J20.8 Acute bronchitis due to other specified organisms; E87.70 Fluid overload, unspecified; D63.1 Anemia in chronic kidney disease; E11.22 Type 2 diabetes mellitus with diabetic chronic kidney disease; Z72.89 Other problems related to lifestyle; Z91.14 Patient's other noncompliance with medication regimen; Z71.3 Dietary counseling and surveillance; Z79.899 Other long term (current) drug therapy; Z88.0 Allergy status to penicillin; Z86.73 Personal history of transient ischemic attack (TIA), and cerebral infarction without residual deficits; Z82.49 Family history of ischemic heart disease and other diseases of the circulatory system
CPT/HCPCS: 36415; 71020; 80048; 80053; 80061; 82962; 83880; 84484; 85025; 85610; 85730; 93005; 93010; 96374; A9270-GY; J1644; J1818; J1940; J7042